=== PATIENT | female | born 1995 | race African-American/Black ===

== ENCOUNTER 2017-05-11 07:32 | Emergency (ER) | payer MEDICAID, SELFPAY | END 2017-05-11 09:33 | disposition home or self-care (01) | LOC: ERS 07:32 | DX: J02.9 Acute pharyngitis, unspecified (principal) | CPT/HCPCS: 87081; 87430; 99283 ==

== ENCOUNTER 2021-05-25 16:31 | Emergency (ER) | payer SELFPAY | END 2021-05-25 17:15 | disposition home or self-care (01) | LOC: ERS 16:31 | DX: J06.9 Acute upper respiratory infection, unspecified (principal) | CPT/HCPCS: 99283 ==

== ENCOUNTER 2024-06-07 12:49 | Outpatient (CLI) | payer OTHER | END 2024-06-07 12:50 | disposition home or self-care (01) | LOC: BICULT 12:49 | PROVIDERS: ATTEND Family Medicine | DX: Z34.82 Encounter for supervision of other normal pregnancy, second trimester (principal); Z3A.20 20 weeks gestation of pregnancy | CPT/HCPCS: 76805 ==